=== PATIENT | male | born 1995 | race Caucasian/White ===

== ENCOUNTER 2023-09-17 10:29 | Emergency (ER) | payer BC, SELFPAY ==
[2023-09-17 10:29] VITALS: BMI 34.7
[2023-09-17 10:36] VITALS: BP 130/82
[2023-09-17] MEDS: MOTRIN 600 MG PO (11:50)
[2023-09-17] MEDS: VALIUM INJECTION 5 MG IM (11:50)
--- NOTE | 2023-09-17 12:31 | ED.GENMED ---
History of Present Illness
General
Chief Complaint: Back Pain
Source: patient
Exam Limitations: none
Time Seen by Provider: 09/17/23 11:12
Nursing documentation reviewed up to this point in time: agreed with
Travel History
Have you had any contact with someone who has COVID-19?: No
Do you have any symptoms of coronavirus? Fever > 100 degrees, chills, cough, shortness of breath, sore throat, loss of taste or smell, muscle aches, or headache?: No
History of Present Illness
History of Present Illness:
Patient is a 28 year-old male who presents to the ER for right-sided low back pain. Patient reports he has chronic intermittent back issues for years. He does a lot of heavy lifting with his job. He has been seen by family doctor for his previous
back issues recommend to go to physical therapy but never did. He reports this episode of pain has been for 8 or 9 days. 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 He has been taking ibuprofen. Pain is worse in his right
lower back with movement changing position sitting to standing position. This morning however when he tried to get out of bed his pain was so bad he could not take a deep breath. Pain is in his right lower back. Because of worsening pain today
he presented to the ER. He is requesting an MRI. He denies any radiation of pain. He denies any bowel or bladder incontinence
Past History
Past History
ED Past Medical History: None; Negative Asthma, HTN or Hypercholesterolemia
ED Past Surgical History: Appendectomy
Social History
Tobacco: Former smoker
Alcohol: Daily ([place] 1 glass 5 days a week)
Personal: Single
Living: with family
Review of Systems
Review of Systems
Allergies reviewed?: Yes
Other source history: family
All Other Systems: ROS reviewed and negative except as documented in HPI and ROS
Constitutional: Reports no symptoms
Respiratory: Reports other (pt had difficulty taking deep breath due to pain this am )
Cardiac: Reports no symptoms
ABD/GI: Reports no symptoms
: Reports no symptoms; Denies incontinence
Musculoskeletal: Reports muscle pain (right lower back pain )
Skin: Reports no symptoms
Neurological: Reports no symptoms
Psychiatric: Reports no symptoms
Phy Exam
General Physical Exam
General Presentation: no apparent distress
General age: appears stated age
General Skin: warm and dry
General Habitus: normal
General Mental: alert
General Hydration: appears well hydrated
Neurological Exam
Neurological Exam: alert, oriented x3 and other (Normal sensation to bilateral lower extremities normal dorsiflexion plantarflexion negative straight leg raise)
Musculoskeletal Exam
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
Skin Exam
Skin Exam: normal color and warm/dry
Psychiatric Exam
Psychiatric Exam: normal mood/affect
Course
Orders/Labs/Results
Orders:
Orders
09/17/23 11:38
Ibuprofen [Motrin] 600 mg PO NOW STA
Lumbar Spine Complete, 4 View [CR Lumbar Spine Comp Min 4 Vw*] Urgent
Comment:
Reason For Exam: pain after lifting
09/17/23 11:39
diazePAM [Valium Injection] 5 mg IM NOW STA
Vital Signs
Initial and Last Documented VS:
Initial Vital Signs
Temp Pulse Resp BP Pulse Ox
97.8 F 80 16 130/82 99
09/17/23 10:36 09/17/23 10:36 09/17/23 10:36 09/17/23 10:36 09/17/23 10:36
Last Documented Vital Signs
Temp Pulse Resp BP Pulse Ox
97.8 F 80 16 130/82 99
09/17/23 10:36 09/17/23 10:36 09/17/23 10:36 09/17/23 10:36 09/17/23 10:36
MDM/Problems Addressed
Differential Diagnosis Includes:
not limited to: muscle strain, less likely disc herniation, compression fracture
MDM/Problems Addressed:
Symptoms are consistent with muscular type back pain. Patient with no neurological deficits normal strength bilaterally. Pain is in the right mid to lower back which does not radiate. Patient has been taking ibuprofen and Tylenol. Patient has
had multiple back issues over the years. He reports he does a lot of heavy lifting for his job. He has been seen by family doctor for this and referred to physical therapy but never did physical therapy. He presents awake alert no acute distress.
No acute findings on x-ray. Will DC with Valium ibuprofen Tylenol and outpatient Ortho follow-up.
*Critical Care Note
Total Time (30-74mins, 75-104mins- exclusive of procedures): Not Applicable
ED Attending Note
-
Portions of this chart may have been created with voice recognition software.� Occasional wrong word or��sound alike� substitutions may have occurred due to the inherent limitations of voice recognition software.
Discharge Plan
Departure
Patient Disposition: Home (Routine Discharge)
Date of Disposition: 09/17/23
Time of Disposition: 12:33
Patient with high blood pressure during this ER visit?: Yes
Condition: Fair
Covid-19: Not Applicable
Discharge Problem:
Low back pain, Muscle strain
Instructions: Low Back Pain (DC), BLOOD PRESSURE
Prescriptions:
New
diazepam [Valium] 5 mg tablet
5 mg PO TID PRN (Reason: muscle spasm) Qty: 10 0RF
No Action
propranolol 10 mg Tablet
10 mg PO DAILY
Referrals:
Rahat Mcpherson MD [Active] -
Mario Kearney DO [Family Provider] -
Activity Restrictions/Additional Instructions:
Warm moist heat to the back several times a day. Ibuprofen 600 mg every hours with food. You May alternate with Tylenol. A prescription for Valium, (muscle relaxer) was sent to pharmacy. Take as directed. This medication will cause drowsiness.
No driving or drinking alcohol or operating machinery while on this medication. Follow-up with family doctor in extremities as well as orthopedics.
return if any worsening of symptoms of increased pain if loss of bowel or bladder weakness lower extremity or any further concerns.
Interventions
Interventions:
*Risk Screen - Suicide Last Done: 09/17/23 11:10
*General Assessment Last Done: 09/17/23 10:36
*Neglect/Abuse Screening Last Done: 09/17/23 11:10
ED- Fall Risk Assessment Last Done: 09/17/23 11:10
*ED COVID-19 Vaccine History Last Done: 09/17/23 10:36
ED-Musculoskeletal Assessment Last Done: 09/17/23 11:09
== END 2023-09-17 12:49 | disposition home or self-care (01) ==
LOC: EMR 10:29
PROVIDERS: EMERGENCY PHYSICIAN Student in an Organized Health Care Education/Training Program; FAMILY PHYSICIAN Family Medicine
DX: S39.012A Strain of muscle, fascia and tendon of lower back, initial encounter (principal); X58.XXXA Exposure to other specified factors, initial encounter; Z87.891 Personal history of nicotine dependence
CPT/HCPCS: 99283; 96372; 72110